=== PATIENT | male | born 1970 | race Caucasian/White ===

== ENCOUNTER 2025-02-27 14:15 | Emergency (ER) | payer BC, OTHER ==
[2025-02-27 14:37] LABS: BASOPHILS ABSOLUTE AUTO 0.03 K/uL (0.00-0.20); BASOPHILS PERCENT AUTO 0.4 % (0.0-2.0); EOSINOPHILS ABSOLUTE AUTO 0.07 K/uL (0.00-0.50); EOSINOPHILS PERCENT AUTO 0.9 % (0.0-5.0); HEMATOCRIT 45.2 % (39.0-49.0); HEMOGLOBIN 15.4 g/dL (13.1-16.8); IMMATURE GRAN ABSOLUTE AUTO 0.01 10^3/uL (0.00-0.04); IMMATURE GRAN PERCENT AUTO 0.1 % (0.0-0.4); LYMPHOCYTES ABSOLUTE AUTO 1.39 K/uL (0.50-3.50); LYMPHOCYTES PERCENT AUTO 18.5 % (10.0-50.0); MEAN CORPUSCULAR HEMOGLOBIN 29.3 pg (28.2-33.3); MEAN CORPUSCULAR HGB CONC 34.1 g/dL (31.7-36.0); MEAN CORPUSCULAR VOLUME 86.1 fL (84.0-98.0); MONOCYTES ABSOLUTE AUTO 0.52 K/uL (0.00-1.00); MONOCYTES PERCENT AUTO 6.9 % (2.0-14.0); NEUTROPHILS ABSOLUTE AUTO 5.49 K/uL (1.40-7.00); NEUTROPHILS PERCENT AUTO 73.2 % (45.0-80.0); PLATELET COUNT,PLT 139 K/uL (150-350); RED BLOOD CELL COUNT 5.25 M/uL (4.33-5.41); RED CELL DISTRIBUTION WIDTH 14.7 % (11.2-14.1); WHITE BLOOD CELL COUNT,WBC 7.5 K/uL (4.0-10.2)
[2025-02-27] MEDS ORDERED: Tenecteplase 50 MG Kit ONE (14:43)
[2025-02-27] MEDS: Tenecteplase 50 MG Kit IV ONE (14:52)
[2025-02-27 14:57] LABS: INR 1.1 (0.9-1.1); PROTHROMBIN TIME 11.1 SEC (9.0-11.1)
[2025-02-27 14:58] LABS: ALBUMIN 3.8 g/dL (3.4-5.0); ANION GAP 6.2 meq/L (7-15); BILIRUBIN TOTAL 0.9 mg/dL (0.2-1.0); CARBON DIOXIDE,CO2 26.8 mmol/L (21.0-32.0); CREATININE 0.93 mg/dL (0.51-1.17); EST CRCL DRUG DOSING (CG) 104.35 mL/min; POTASSIUM,K 3.9 mmol/L (3.5-5.1); PROTEIN TOTAL,TP 7.9 g/dL (6.4-8.2)
[2025-02-27] MEDS: Iopamidol 755 Mg/ML 100 ML Bottle IVPUSH ONE (15:46)
== END 2025-02-27 15:12 ==
LOC: LL.ED 14:15
DX: I63.9 Cerebral infarction, unspecified (principal); E78.00 Pure hypercholesterolemia, unspecified; I10 Essential (primary) hypertension; E11.9 Type 2 diabetes mellitus without complications; Z86.16 Personal history of COVID-19; Z79.82 Long term (current) use of aspirin; Z79.890 Hormone replacement therapy; Z79.899 Other long term (current) drug therapy; Z79.84 Long term (current) use of oral hypoglycemic drugs
CPT/HCPCS: 36415; 37195; 70450; 70498; 80053; 83605; 83735; 83880; 85025; 85379; 85610; 85730; 93005; 99284; 99285-25; J3101; Q9967